=== PATIENT | male | born 1995 | race Hispanic/Latino ===

== ENCOUNTER 2022-01-31 21:17 | Emergency (ER) | payer SELFPAY ==
[~2022-01-31] VITALS: Ht 162.6 cm; Wt 72.7 kg
[2022-01-31 22:27] VITALS: BP 124/82
[2022-01-31 22:30] VITALS: BP 134/96
[2022-01-31] MEDS ORDERED: GENTAMICIN SULF5 ML OS (22:42)
[2022-01-31 22:45] VITALS: BP 117/56
[2022-01-31 22:54] VITALS: BP 117/56
== END 2022-01-31 22:54 | disposition home or self-care (01) | DRG 125 ==
LOC: ED 21:17
DX: S05.02XA Injury of conjunctiva and corneal abrasion without foreign body, left eye, initial encounter (principal); X58.XXXA Exposure to other specified factors, initial encounter; Y93.H3 Activity, building and construction; Y92.89 Other specified places as the place of occurrence of the external cause; Y99.0 Civilian activity done for income or pay

== ENCOUNTER 2024-07-08 10:29 | Emergency (ER) | payer SELFPAY ==
[~2024-07-08] VITALS: Ht 162.6 cm; Wt 68.0 kg
[~2024-07-08 10:29] MED LIST: GENTAMICIN SULF5 ML OS
[2024-07-08 11:02] LABS: BASO% 0.5 % (0-3); EOS% 0.9 % (0-8); HEMATOCRIT 48.7 % (39.0-50.0); HEMOGLOBIN 16.7 g/dl (14.0-18.0); IMMATURE GRANULOCYTES 0.5 % (0.0-5.0); LYMPH% 47.5 % (15-41); MEAN CORPUSCULAR HGB 29.5 pG CALC (26.0-32.0); MEAN CORPUSCULAR HGB CONC 34.3 g/dL CAL (32.0-36.0); MONO% 5.1 % (2-13); NEUT# 4.44 thou/uL (1.82-7.42); NEUT% 45.5 % (42-76); RED BLOOD COUNT 5.66 mill/uL (4.70-6.10); RED CELL DISTRI WIDTH 12.6 % (11.5-15.5)
[2024-07-08 11:24] LABS: ALBUMIN 4.8 g/dL (3.2-5.0); BILIRUBIN, TOTAL 0.7 mg/dL (0.2-1.3); CREATININE 0.7 mg/dL (0.7-1.3); POTASSIUM 3.8 mmol/l (3.5-5.1); TOTAL PROTEIN 8.3 g/dL (6.3-8.2)
[2024-07-08 13:05] VITALS: BP 136/79
[2024-07-08] MEDS ORDERED: KETOROLAC TROMETHAMINE 30 MG/ML SDV IV ONE (13:15)
[2024-07-08 13:31] VITALS: BP 124/68
[2024-07-08 13:34] LABS: URINE BILIRUBIN - DIPSTICK Negative (NEGATIVE); URINE BLOOD DIPSTICK Negative (NEGATIVE); URINE GLUCOSE - DIPSTICK Negative (NEGATIVE); URINE KETONE Negative (NEGATIVE); URINE LEUK ESTERASE Negative (NEGATIVE); URINE NITRITE - DIPSTICK Negative (Negative); URINE PROTEIN - DIPSTICK Negative (NEG-TRACE); URINE UROBILINOGEN - DIPSTICK 0.2 E.U./dL (0.2)
[2024-07-08 13:35] LABS: URINE COLOR Yellow
[2024-07-08 14:01] VITALS: BP 136/77
[2024-07-08 14:30] VITALS: BP 123/72
[2024-07-08] MEDS ORDERED: CITRATE OF MEGNESIA PO (14:55)
[2024-07-08 15:01] VITALS: BP 134/58
[2024-07-08 15:20] VITALS: BP 134/58
== END 2024-07-08 15:20 | disposition home or self-care (01) | DRG 392 ==
LOC: ED 10:29
PROVIDERS: Family Medicine
DX: K59.00 Constipation, unspecified (principal)
CPT/HCPCS: Q9967